=== PATIENT | female | born 1935 | race Caucasian/White ===

== ENCOUNTER 2017-08-29 10:35 | Emergency (ER) | payer MEDICARE, BC ==
[2017-08-29] MEDS ORDERED: NS 0.9% 1000 ML* 1,000 ML IV ONE ×2 (11:30→12:34)
[2017-08-29 12:03] LABS: ABS Basophils 0.1 10^3/ul (0-0.2); ABS Eosinophils 0.1 10^3/ul (0-0.6); ABS Lymphocytes 1.4 10^3/ul (1.0-4.8); ABS Monocytes 0.5 10^3/ul (0-0.8); ABS Neutrophils 4.4 10^3/ul (1.5-7.7); ABS Nucleated RBC 0 10^3/ul; Eosinophil % 0.9 % (0-6); Hematocrit 38 % (35-47); Hemoglobin 12.6 g/dl (12.0-16.0); Lymphocyte % 21.7 % (25-47); Mean Corpuscular HGB Conc 33 g/dl (31-36); Mean Corpuscular Hemoglobin 30 pg (27-31); Mean Corpuscular Volume 91 fL (80-97); Mean Platelet Volume 8 um3 (7.4-10.4); Nucleated Red Blood Cells % 0.1; Platelet Count 373 10^3/ul (150-450); Red Blood Count 4.21 10^6/ul (4.0-5.4); Red Cell Distribution Width 14 % (10.5-15); White Blood Count 6.4 10^3/ul (3.5-10.8)
[2017-08-29 12:17] LABS: INR 1.02 (0.77-1.02)
[2017-08-29 12:21] LABS: EGFR Non-African American 60.6 (>60)
--- NOTE | 2017-08-29 12:44 | RAD ---
INDICATION: Altered mental status. COMPARISON: There are no prior studies available for comparison. TECHNIQUE: A portable view of the chest was obtained. FINDINGS: Cardiac and mediastinal contours appear to be within normal limits. The lungs are clear. No pleural effusion is seen. There is a mild dorsal lumbar scoliosis. IMPRESSION: NO EVIDENCE FOR ACUTE DISEASE.
[2017-08-29 12:47] LABS: Urine Appearance Clear; Urine Blood Negative (Negative); Urine Color Yellow; Urine Ketones Trace (Negative); Urine Protein Negative (Negative); Urine Specific Gravity 1.021 (1.010-1.030); Urine Urobilinogen Negative (Negative)
--- NOTE | 2017-08-29 13:28 | RAD ---
Indication: Unwitnessed fall. Abrasion to LEFT head. Comparison: No relevant prior exams available on the [facility] for comparison. Technique: Noncontrast CT vertex of skull through foramen magnum. Report: Moderate prominence of the cerebral sulci reflecting atrophy. Proportional enlargement of the ventricles. Patent basal cisterns. Negative for eckert matter white matter obscuration, intra or extra-axial hemorrhage, or mass effect. Negative for calvarial or skull base fracture or suspicious focal osseous lesion. Clear visualized paranasal sinuses and mastoid air spaces. Mild LEFT temporal scalp edema. No loculated soft tissue plane hematoma evident. IMPRESSION: 1. Negative for intracranial hemorrhage or CT stigmata of ischemic stroke. 2. No traumatic brain injury evident. 3. Moderate involutional change.
[2017-08-29 14:31] VITALS: BP 126/40
--- NOTE | 2017-08-29 17:53 | ED ---
Leslie Braga Gabriel, scribed for Carl Raya MD on 08/29/17 at 1128 . Altered Mental Status - HPI Summary HPI Summary: This patient is a 82 year old BIBA to [facility] accompanied by family and primary health care nurse with a chief complaint of AMS since 14 hours ago. Patients family reports left eye discharge/redness, LE edema, aggressive behavior, tremors, decreased PO intake, and decreased ambulation. They state she usually is slightly verbal and ambulates often but she has had primary progressive aphasia since 2016. Additionally they believe she has had some falls but none that were witnessed. She was put on trazadone 08/22/17 for possible seizures and to help her sleep. - History Of Current Complaint Chief Complaint: EDGeneral Stated Complaint: AMS Time Seen by Provider: 08/29/17 11:06 Hx Obtained From: Family/Taxi Dancer Hx From Patient Unobtainable Due To: Altered Mental Status Last Known Well Date: yesterday Onset/Duration: Still Present Timing: Constant Severity Initially: Moderate Severity Currently: Moderate Character: Responsiveness - decreased Associated Signs And Symptoms: Positive: Weakness. Negative: Vomiting - Allergies/Home Medications Allergies/Adverse Reactions: Allergies Allergy/AdvReac Type Severity Reaction Status Date / Time Unable to Obtain Allergy Verified 12/12/15 16:28 PMH/Surg Hx/FS Hx/Imm Hx Previously Healthy: No Endocrine/Hematology History: Denies: Hx Diabetes Cardiovascular History: Denies: Hx Congestive Heart Failure, Hx Hypertension History: Denies: Hx Dialysis, Hx Renal Disease Neurological History: Reports: Other Neuro Impairments/Disorders - primary progressive aphasia Infectious Disease History: Unable to Obtain/Confirm Infectious Disease History: Denies: Traveled Outside the [place] in Last 30 Days - Family History Known Family History: Negative: Respiratory Disease, Seizure Disorder - Social History Occupation: Unemployed Lives: With Family Alcohol Use: Rare Alcohol Amount: 1-2 glasses of wine per week Hx Substance Use: No Substance Use Type: Reports: None Hx Tobacco Use: No Smoking Status (MU): Former Smoker Review of Systems Positive: Other - decreased PO intake and ambulation Positive: Erythema, Other - drainage Positive: Edema - in LE , Other - tremors Positive: Weakness, Paresthesia Positive: Other - aggressive All Other Systems Reviewed And Are Negative: No - Comments Additional Review of Systems Comments: Complete ROS limited due to the patient being non responsive due to AMS. Physical Exam - Summary Physical Exam Summary: Appearance: Can stand on her own, follows commands, she is incontinent of urine Skin: warm, dry, reflects adequate perfusion Head/face: normal Eyes: EOMI, MAGDALENO Sub conjunctival hematoma on the lateral aspect of the left globe, right is normal ENT: Dry lips with tacky mucous membranes , Wax exclusion in the left ear. Right is normal Neck: supple, non-tender Respiratory: Diminished breath sounds no wheezes rales or rhonchi Cardiovascular: RRR, pulses symmetrical Abdomen: non-tender, soft Bowel: present Musculoskeletal: bruises on frontal scalp with abrasion over left eye, no pain over the cervical spine. Tremor in the right upper extremity Neuro: normal, sensory motor intact, A&Ox3 Triage Information Reviewed: Yes Vital Signs On Initial Exam: Initial Vitals BP 133/56 08/29/17 10:44 Vital Signs Reviewed: Yes Completion Of Physical Exam Limited Due To: Altered Mental Status - Karen Coma Scale Coma Scale Total: 9 Diagnostics - Vital Signs Vital Signs Temp Pulse Resp BP Pulse Ox 08/29/17 11:00 73 12 98 08/29/17 10:45 98.3 F 82 17 133/56 98 08/29/17 10:44 133/56 - Laboratory Lab Results: Lab Results 08/29/17 08/29/17 08/29/17 Range/Units 11:47 11:47 11:47 WBC 6.4 (3.5-10.8) 10^3/ul RBC 4.21 (4.0-5.4) 10^6/ul Hgb 12.6 (12.0-16.0) g/dl Hct 38 (35-47) % MCV 91 (80-97) fL MCH 30 (27-31) pg MCHC 33 (31-36) g/dl RDW 14 (10.5-15) % Plt Count 373 (150-450) 10^3/ul MPV 8 (7.4-10.4) um3 Neut % (Auto) 68.2 (38-83) % Lymph % (Auto) 21.7 L (25-47) % Polk % (Auto) 7.4 (1-9) % Eos % (Auto) 0.9 (0-6) % Baso % (Auto) 1.8 (0-2) % Absolute Neuts (auto) 4.4 (1.5-7.7) 10^3/ul Absolute Lymphs (auto) 1.4 (1.0-4.8) 10^3/ul Absolute Monos (auto) 0.5 (0-0.8) 10^3/ul Absolute Eos (auto) 0.1 (0-0.6) 10^3/ul Absolute Basos (auto) 0.1 (0-0.2) 10^3/ul Absolute Nucleated RBC 0 10^3/ul Nucleated RBC % 0.1 INR (Anticoag Therapy) (0.77-1.02) Sodium 137 (133-145) mmol/L Potassium 3.6 (3.5-5.0) mmol/L Chloride 103 (101-111) mmol/L Carbon Dioxide 28 (22-32) mmol/L Anion Gap 6 (2-11) mmol/L BUN 19 (6-24) mg/dL Creatinine 0.89 (0.51-0.95) mg/dL Est GFR ( Amer) 77.9 (>60) Est GFR (Non-Af Amer) 60.6 (>60) BUN/Creatinine Ratio 21.3 H (8-20) Glucose 92 (70-100) mg/dL Lactic Acid (0.5-2.0) mmol/L Calcium 8.6 (8.6-10.3) mg/dL Magnesium 2.1 (1.9-2.7) mg/dL Total Bilirubin 0.60 (0.2-1.0) mg/dL AST 60 H (13-39) U/L ALT 29 (7-52) U/L Alkaline Phosphatase 40 (34-104) U/L Ammonia 40 (16-53) mol/L Total Creatine Kinase 739 H (10-223) U/L Troponin I 0.02 (<0.04) ng/mL Total Protein 6.3 L (6.4-8.9) g/dL Albumin 3.4 (3.2-5.2) g/dL Globulin 2.9 (2-4) g/dL Albumin/Globulin Ratio 1.2 (1-3) TSH 2.91 (0.34-5.60) mcIU/mL Urine Color Urine Appearance Urine pH (5-9) Ur Specific [place] (1.010-1.030) Urine Protein (Negative) Urine Ketones (Negative) Urine Blood (Negative) Urine Nitrate (Negative) Urine Bilirubin (Negative) Urine Urobilinogen (Negative) Ur Leukocyte Esterase (Negative) Urine WBC (Auto) (Absent) Urine RBC (Auto) (Absent) Urine Bacteria (Absent) Urine Glucose (Negative) 08/29/17 08/29/17 08/29/17 Range/Units 11:47 11:47 12:15 WBC (3.5-10.8) 10^3/ul RBC (4.0-5.4) 10^6/ul Hgb (12.0-16.0) g/dl Hct (35-47) % MCV (80-97) fL MCH (27-31) pg MCHC (31-36) g/dl RDW (10.5-15) % Plt Count (150-450) 10^3/ul MPV (7.4-10.4) um3 Neut % (Auto) (38-83) % Lymph % (Auto) (25-47) % Polk % (Auto) (1-9) % Eos % (Auto) (0-6) % Baso % (Auto) (0-2) % Absolute Neuts (auto) (1.5-7.7) 10^3/ul Absolute Lymphs (auto) (1.0-4.8) 10^3/ul Absolute Monos (auto) (0-0.8) 10^3/ul Absolute Eos (auto) (0-0.6) 10^3/ul Absolute Basos (auto) (0-0.2) 10^3/ul Absolute Nucleated RBC 10^3/ul Nucleated RBC % INR (Anticoag Therapy) 1.02 (0.77-1.02) Sodium (133-145) mmol/L Potassium (3.5-5.0) mmol/L Chloride (101-111) mmol/L Carbon Dioxide (22-32) mmol/L Anion Gap (2-11) mmol/L BUN (6-24) mg/dL Creatinine (0.51-0.95) mg/dL Est GFR ( Amer) (>60) Est GFR (Non-Af Amer) (>60) BUN/Creatinine Ratio (8-20) Glucose (70-100) mg/dL Lactic Acid 0.8 (0.5-2.0) mmol/L Calcium (8.6-10.3) mg/dL Magnesium (1.9-2.7) mg/dL Total Bilirubin (0.2-1.0) mg/dL AST (13-39) U/L ALT (7-52) U/L Alkaline Phosphatase (34-104) U/L Ammonia (16-53) mol/L Total Creatine Kinase (10-223) U/L Troponin I (<0.04) ng/mL Total Protein (6.4-8.9) g/dL Albumin (3.2-5.2) g/dL Globulin (2-4) g/dL Albumin/Globulin Ratio (1-3) TSH (0.34-5.60) mcIU/mL Urine Color Yellow Urine Appearance Clear Urine pH 5.0 (5-9) Ur Specific [place] 1.021 (1.010-1.030) Urine Protein Negative (Negative) Urine Ketones Trace H (Negative) Urine Blood Negative (Negative) Urine Nitrate Negative (Negative) Urine Bilirubin Negative (Negative) Urine Urobilinogen Negative (Negative) Ur Leukocyte Esterase Trace H (Negative) Urine WBC (Auto) 1+(6-10/hpf) H (Absent) Urine RBC (Auto) Absent (Absent) Urine Bacteria Absent (Absent) Urine Glucose Negative (Negative) Result Diagrams: 08/29/17 11:47 08/29/17 11:47 Lab Statement: Any lab studies that have been ordered have been reviewed, and results considered in the medical decision making process. - Radiology CXR Radiology Interpretation Completed By: Radiologist - NO EVIDENCE FOR ACUTE DISEASE. ED physician has reviewed this radiology report. - CT CT brain CT Interpretation Completed By: Radiologist - 1. Negative for intracranial hemorrhage or CT stigmata of ischemic stroke. 2. No traumatic brain injury evident. 3. Moderate involutional change. ED physician has reviewed this radiology report. - EKG 1204 Cardiac Rate: NL EKG Rhythm: Sinus Rhythm - at [address] Segment: Normal EKG Interpretation: normal axis, normal interval Altered Mental Statu Course/Dx - Course Course Of Treatment: pt with MS change and weakness. Recently started on Trazadone, now with delirium. Pt hydrated here with rapid improvement. Had not been eating/drinking. Pt with chronic issues. Discussed outpt EEG, neuro referral and evaluation by geriatric psychiatry for ongoing mood stabilization needs. No acute findings today. D/C improved condition with home health. - Diagnoses Discharge Diagnoses: Dehydration, Delirium, Adverse effects of medication Discharge - Discharge Plan Condition: Improved Disposition: HOME Patient Education Materials: Dehydration (ED) Referrals: Carlos Garvey MD [Medical Doctor] - Yolanda Lara MD [Primary Care Provider] - Additional Instructions: Call family doctor and [facility] for expanded services. Call for appt with neurology. Recommended is outpatient EEG and consultation with a geriatric psychiatrist. Home safety aides such as walkers, etc per Home Health agency. Return if worse, fever, falls, new symptoms or other concerns as discussed. Keep well hydrated. Vitamin gonzales or Gatorade G2 may help. STOP trazadone. The documentation as recorded by the Leslie mcguire Gabriel accurately reflects the service I personally performed and the decisions made by me, Carl Raya MD.
== END 2017-08-29 15:13 | disposition home or self-care (01) ==
LOC: ED 10:35
DX: E86.0 Dehydration (principal); R41.0 Disorientation, unspecified; T43.215A Adverse effect of selective serotonin and norepinephrine reuptake inhibitors, initial encounter; Z87.891 Personal history of nicotine dependence
CPT/HCPCS: 36415; 70450; 71010; 80053; 81003; 81015; 82140; 82550; 83605; 83735; 84443; 84484; 85025; 85610; 87040; 87086; 93005; 96360; 96361; 99283